=== PATIENT | male | born 1950 | race Caucasian/White ===

== ENCOUNTER 2017-05-24 15:22 | Emergency (ER) | payer SELFPAY, OTHER | END 2017-05-24 18:35 | disposition left against medical advice (07) | LOC: E/R 15:22 | DX: Z53.21 Procedure and treatment not carried out due to patient leaving prior to being seen by health care provider (principal) ==

== ENCOUNTER 2017-08-08 16:30 | Emergency (ER) | payer MEDICARE, OTHER ==
[2017-08-08] MEDS: LIDOCAINE 1% (MDV) 20 ML INJ SC (18:43)
== END 2017-08-08 19:18 | disposition home or self-care (01) ==
LOC: FTE 16:30
DX: S60.452A Superficial foreign body of right middle finger, initial encounter (principal); I10 Essential (primary) hypertension; W45.8XXA Other foreign body or object entering through skin, initial encounter; Y92.9 Unspecified place or not applicable
CPT/HCPCS: 10120; 99283-25

== ENCOUNTER → 2017-10-23 | Outpatient (CLI) | payer MEDICARE, OTHER | END | disposition home or self-care (01) | LOC: C/S 08:58 | DX: F03.90 Unspecified dementia, unspecified severity, without behavioral disturbance, psychotic disturbance, mood disturbance, and anxiety (principal); R51 Headache | CPT/HCPCS: 70450 ==